=== PATIENT | female | born 1995 | race Caucasian/White ===

== ENCOUNTER 2018-03-26 20:12 | Inpatient (IN) | payer OTHER, SELFPAY ==
[2018-03-26] MEDS ORDERED: MAALOX 30 ML SUSP *UDC PO (22:30)
[2018-03-27 13:47] LABS: BEDSIDE GLUCOSE 97 MG/DL (70-105)
[2018-03-27 15:21] LABS: VALPROIC ACID (DEPAKOTE) < 3.0 UG/ML (50.0-100.0)
[2018-03-27 17:02] LABS: BEDSIDE GLUCOSE 76 MG/DL (70-105)
[2018-03-27] MEDS: MOM 30ML SUSPENSION UDC PO (17:35)
[2018-03-27] MEDS: traZODone 50 MG TAB PO (20:16)
[2018-03-27] MEDS: DIVALPROEX 500MG *ER* TAB PO (20:16)
[2018-03-27] MEDS: DOCUSATE SODIUM 100 MG CAP PO (21:00)
[2018-03-27 22:27] LABS: CONTROL LINE HCG INT CTR LINE PRESENT; HCG, SERUM QUALITATIVE NEGATIVE (NEGATIVE)
[2018-03-28] MEDS: LACTULOSE 20 GM/30 ML SYRUP UD PO (01:27)
[2018-03-28 07:51] LABS: ESTIMATED AVERAGE GLUCOSE 100 MG/DL (60-110); HEMOGLOBIN A1c 5.1 %
[2018-03-28] MEDS: DOCUSATE SODIUM 100 MG CAP PO ×2 (09:41→21:00)
[2018-03-28] MEDS: DIVALPROEX 500MG *ER* TAB PO (09:41)
[2018-03-28] MEDS: ACETAMINOPHEN TAB 650MG DOSE (2X325MG) PO (12:51)
[2018-03-28 14:06] LABS: HIV 1&2 SCREEN CENTAUR NEGATIVE (NEGATIVE)
[2018-03-28] MEDS: MAGNESIUM CITRATE 300 ML BTL PO (15:26)
[2018-03-28 17:34] LABS: BEDSIDE GLUCOSE 71 MG/DL (70-105)
[2018-03-28] MEDS: traZODone 50 MG TAB PO (22:16)
[2018-03-29] MEDS: DOCUSATE SODIUM 100 MG CAP PO ×2 (08:30→21:47)
[2018-03-29] MEDS: ARIPiprazole 10 MG TAB PO (21:47)
[2018-03-30] MEDS: ARIPiprazole 10 MG TAB PO ×2 (09:00→21:50)
[2018-03-30] MEDS: DOCUSATE SODIUM 100 MG CAP PO ×2 (09:00→21:50)
[2018-03-30 16:28] LABS: BEDSIDE GLUCOSE 106 MG/DL (70-105)
[2018-03-30] MEDS: traZODone 50 MG TAB PO (21:49)
[2018-03-31 06:16] LABS: BEDSIDE GLUCOSE 82 MG/DL (70-105)
[2018-03-31] MEDS: DOCUSATE SODIUM 100 MG CAP PO ×2 (09:24→21:37)
[2018-03-31] MEDS: ARIPiprazole 10 MG TAB PO ×2 (09:24→21:37)
[2018-03-31 16:24] LABS: BEDSIDE GLUCOSE 131 MG/DL (70-105)
[2018-03-31] MEDS: ARIPiprazole MONOHYDRATE 400 MG INJ (ABILIFY)(J0401) IM (23:09)
[2018-04-01 06:16] LABS: BEDSIDE GLUCOSE 80 MG/DL (70-105)
[2018-04-01] MEDS: DOCUSATE SODIUM 100 MG CAP PO (09:07)
[2018-04-01] MEDS: ARIPiprazole 10 MG TAB PO (09:07)
== END 2018-04-01 14:30 | disposition home or self-care (01) | DRG 750 ==
LOC: M ED 20:12 → M ED INP 22:58 → M PSY 23:15
PROVIDERS: Psychiatry & Neurology Psychiatry
DX: F25.9 Schizoaffective disorder, unspecified (principal); F84.5 Asperger's syndrome; F60.3 Borderline personality disorder; E28.2 Polycystic ovarian syndrome; K59.00 Constipation, unspecified; Z88.0 Allergy status to penicillin; Z88.1 Allergy status to other antibiotic agents; Z88.8 Allergy status to other drugs, medicaments and biological substances; Z79.899 Other long term (current) drug therapy